=== PATIENT | male | born 1975 | race Two or more races ===

== ENCOUNTER 2017-11-26 14:42 | Emergency (ER) | payer OTHER ==
[2017-11-26 14:51] VITALS: BP 132/82
--- NOTE | 2017-11-26 16:17 | ER Document Report ---
HPI - HPI Patient complains to provider of: Left finger injury Onset: Just prior to arrival Onset/Duration: Sudden Quality of pain: Achy Pain Level: 3 Context: States that he was at work using a barytes grinder while wearing gloves. Patient states that the barytes grinder kicked back striking his left second finger. Patient states the barytes grinder did cut through his glove lacerating his finger. Patient complains of pain with flexing the finger and is concerned that he may have a tendon injury. Associated Symptoms: Other - Left second finger injury Exacerbated by: Movement Relieved by: Denies Similar symptoms previously: No Recently seen / treated by doctor: Yes - Sent here from an urgent care - ROS ROS below otherwise negative: Yes Systems Reviewed and Negative: Yes All other systems reviewed and negative - CONSTITUTIONAL Constitutional: DENIES: Fever, Chills - MUSCULOSKELETAL Musculoskeletal: REPORTS: Extremity pain - L index finger. DENIES: Swelling - DERM Skin Color: Normal Skin Problems: Laceration Past Medical History - General Information source: Patient - Social History Smoking Status: Never Smoker Frequency of alcohol use: None Drug Abuse: None Occupation: [employer] Lives with: Family Family History: Reviewed & Not Pertinent Patient has suicidal ideation: No Patient has homicidal ideation: No - Medical History Medical History: Negative Renal/ Medical History: Denies: Hx Peritoneal Dialysis Surgical Hx: Negative - Immunizations Immunizations up to date: Yes Vertical Provider Document - CONSTITUTIONAL Agree With Documented VS: Yes Exam Limitations: No Limitations General Appearance: WD/WN, No Apparent Distress - INFECTION CONTROL TRAVEL OUTSIDE OF THE [place] IN LAST 30 DAYS: No - HEENT HEENT: Atraumatic, Normocephalic - NECK Neck: Normal Inspection - RESPIRATORY Respiratory: No Respiratory Distress - CARDIOVASCULAR Pulses: Normal: Radial - MUSCULOSKELETAL/EXTREMETIES Musculoskeletal/Extremeties: Tender - Left second finger tenderness over middle phalanx, No Edema Notes: Patient with superficial laceration to dorsal aspect of left second finger. No injury noted to palmar surface of finger. Patient able to extend finger without difficulty, patient complains of inability to flex finger and increased pain with flexion of the finger. No concern for tendon laceration - NEURO Level of Consciousness: Awake, Alert, Appropriate - DERM Integumentary: Warm, Dry, Laceration - Left second finger superficial laceration to dorsal aspect of left second finger with 1/2 cm area that appears to be a deeper laceration, wound edges approximate well Course - Re-evaluation Re-evalutation: 11/26/17 20:32 Dr. Shrestha the radiologist called stating that she reviewed the patient's additional images that she did not see initially and states that there does appear to be a foreign body versus a small avulsion fracture to the proximal PIP joint. She suspects that this is likely a small chip fracture. Discussed mechanism of injury with Dr. Shrestha. Patient was then called and advised of radiologist findings and encouraged to follow-up with orthopedic hand specialty. Patient again encouraged to take antibiotics that were prescribed. Patient advised that chart would be adjusted to reflect this diagnosis. - Vital Signs Vital signs: Temp Pulse Resp BP Pulse Ox 98.4 F 74 132/82 H 96 11/26/17 14:50 11/26/17 14:50 11/26/17 14:50 11/26/17 14:50 - Diagnostic Test Radiology reviewed: Image reviewed, Reports reviewed Procedures - Immobilization Left Finger 2nd digit Pre-Proc Neuro Vasc Exam: Normal Immobilizer type: Finger splint (Static) Performed by: PCT Post-Proc Neuro Vasc Exam: Normal Alignment checked and good: Yes Discharge - Discharge Clinical Impression: Avulsion fracture Finger laceration Qualifiers: Encounter type: initial encounter Finger: index finger Damage to nail status: without damage Foreign body presence: without foreign body Laterality: left Qualified Code(s): S61.211A - Laceration without foreign body of left index finger without damage to nail, initial encounter Disposition: HOME, SELF-CARE Instructions: Cephalexin ([facility]), Laceration Care ([facility]), Non-Sutured Laceration ( [facility]), Prophylactic Antibiotic ([facility]) Additional Instructions: Return immediately for any new or worsening symptoms Followup with your primary care provider, call tomorrow to make a followup appointment Follow-up with a hand specialist for any persistent pain or problems Prescriptions: Cephalexin Monohydrate [Keflex 500 mg Capsule] 500 mg PO Q6H 5 Days capsule Forms: Return to Work Referrals: MATTEO REEVES, [ACTIVE STAFF] - Follow up as needed
--- NOTE | 2017-11-26 17:13 | RADIOLOGY REPORT (SQ) ---
EXAM DESCRIPTION: FINGER LEFT COMPLETED DATE/TIME: 11/26/2017 4:54 pm REASON FOR STUDY: lens grinder rough struck finger L 2nd COMPARISON: None. NUMBER OF VIEWS: One view. TECHNIQUE: Lateral view images acquired of the left second finger. LIMITATIONS: None. FINDINGS: MINERALIZATION: Normal. BONES: No acute fracture or dislocation. No worrisome bone lesions. SOFT TISSUES: Small dorsal laceration near the PIP joint without radiopaque foreign body. No foreign body. OTHER: No other significant finding. IMPRESSION: Single lateral film second finger, small dorsal laceration near the PIP joint without ra diopaque foreign body or underlying fracture COMMENT: SITE OF TRAUMA/COMPLAINT MARKED/STAMP COMPLETED: YES. TECHNICAL DOCUMENTATION: JOB ID: [id number] [employer]- All Rights Reserved Reading location - IP/workstation name: [email or web address]
== END 2017-11-26 17:58 | disposition home or self-care (01) ==
LOC: ER 14:42
DX: S61.211A Laceration without foreign body of left index finger without damage to nail, initial encounter (principal); S62.611A Displaced fracture of proximal phalanx of left index finger, initial encounter for closed fracture; W29.8XXA Contact with other powered hand tools and household machinery, initial encounter; Y99.0 Civilian activity done for income or pay
CPT/HCPCS: 99283